=== PATIENT | female | born 1930 | race Caucasian/White ===

== ENCOUNTER → 2017-11-29 | Outpatient (CLI) | payer MEDICARE ==
[2017-11-29] MEDS: REGADENOSON 0.4 MG/5 ML DISP.SYRIN. IV (10:51)
== END | disposition home or self-care (01) ==
LOC: NM 09:10
DX: I25.10 Atherosclerotic heart disease of native coronary artery without angina pectoris (principal)
CPT/HCPCS: 78452; 93017; 96374; 96375; 96376; A9500; J2785

== ENCOUNTER → 2018-03-24 | Outpatient (CLI) | payer MEDICARE ==
[2017-10-11 15:00] VITALS: BP 145/74
[~2018-03-24] MED LIST: ASPI325T11 PO; CHOL10003 PO; HYDR12.53 PO; LEVO250T25 PO; TRAM50TA PO
--- NOTE | 2018-03-24 16:37 | RAD ---
CT CHEST WO CONTRAST Indication: Precordial chest pain Technique: Noncontrast CT imaging was performed of the chest, multiplanar reconstruction images submitted. One or more of the following individualized dose reduction techniques were utilized for this examination: 1. Automated exposure control 2. Adjustment of the mA and/or kV according to patient size 3. Use of iterative reconstruction technique. Contrast: None Comparison: None Findings: There is no pneumothorax, infiltrate, pleural effusion, significant pericardial effusion. There is prominent coronary calcification. 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 No significantly enlarged nodes are identified of the chest. Major airways are patent. There is more prominent plaque of the visualized abdominal aorta including near the origin left renal artery, to lesser degree near the right renal artery origin. 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 There is a 1.9 cm exophytic lesion of the right kidney, density measurements of 20 Hounsfield units. There is multilevel thoracic spondylosis. IMPRESSION: 1. There is prominent coronary calcification. There is mild ectasia of the ascending thoracic aorta about 3.7 cm. 2. There is slightly exophytic lesion of the right kidney, likely slightly complex cyst, could be confirmed with ultrasound. 3. 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 Electronically signed by: Marlo Jeffery MD (03/24/2018 4:33 PM) [id number]
== END | disposition home or self-care (01) ==
LOC: CT 10:03
PROVIDERS: ATTEND Physician Assistant
DX: I77.810 Thoracic aortic ectasia (principal); I25.10 Atherosclerotic heart disease of native coronary artery without angina pectoris; M47.894 Other spondylosis, thoracic region; N28.9 Disorder of kidney and ureter, unspecified
CPT/HCPCS: 71250